=== PATIENT | male | born 1970 | race African-American/Black ===

== ENCOUNTER → 2016-09-06 | Outpatient (CLI) | payer OTHER ==
--- NOTE | 2016-09-06 15:44 | US ---
EXAMINATION TYPE: US kidneys/renal and bladder DATE OF EXAM: 09/06/2016 COMPARISON: NONE CLINICAL HISTORY: R31.9 Hematuria. EXAM MEASUREMENTS: Right Kidney: 12.4 x 5.5 x 5.9 cm Left Kidney: 12.6 x 6.1 x 5.8 cm Right Kidney: No hydronephrosis or masses seen Left Kidney: No hydronephrosis or masses seen Bladder: wnl Bilateral Jets seen: Yes There is no evidence for hydronephrosis at this point in time. No nephrolithiasis is seen. No parish s are identified. The urinary bladder is anechoic. Bilateral ureteral jets are seen. IMPRESSION: No significant abnormality to account for the patient's symptoms.
== END | disposition home or self-care (01) ==
LOC: RADUSWWP 15:02
PROVIDERS: ATTEND Internal Medicine
DX: R31.9 Hematuria, unspecified (principal)
CPT/HCPCS: 76770

== ENCOUNTER 2019-10-15 10:47 | Day surgery (SDC) | payer OTHER ==
[2019-10-11 09:28] VITALS: BMI 31.4
[2019-10-15 11:11] VITALS: TEMP 97.8
[2019-10-15] MEDS ORDERED: LACTATED RINGERS 1,000 ML IV ONE (11:11)
[2019-10-15] MEDS ORDERED: LIDOCAINE 1% (10MG/ML) FOR IV START INTRADERMA ONE (11:12)
[2019-10-15] MEDS ORDERED: MIDAZOLAM 2 MG/2 ML VIAL IVP ONE (11:52)
[2019-10-15] MEDS ORDERED: PROPOFOL 10 MG/ML 20 ML VIAL IV ONE (12:29)
--- NOTE | 2019-10-15 13:02 | P.PCN ---
Date of Procedure: 10/15/19 Description of Procedure: BRIEF HISTORY: Patient is a 49-year-old male presents for outpatient colonoscopy for screening for malignant neoplasm in the colon. No prior colonoscopy. No first-degree family members with colon cancer. No change in bowel habits reported. PROCEDURE PERFORMED: Colonoscopy with polypectomy. PREOPERATIVE DIAGNOSIS: Screening for malignant neoplasm of the colon, no prior colonoscopy. ESTIMATED BLOOD LOSS: Minimal. IV sedation per Anesthesia. PROCEDURE: After informed consent was obtained, the patient, was brought into the endoscopy unit. IV sedation was administered by Anesthesia under continuous monitoring. Digital rectal examination was normal. Initially the Olympus CF-190 flexible video colonoscope was then inserted in the rectum, gradually advanced into the cecum without any difficulty. Careful examination was performed as the scope was gradually being withdrawn. Ileocecal valve and the appendiceal orifice were visualized and appeared normal. Prep was excellent. Mucosa of the cecum, ascending colon, transverse colon, descending colon, sigmoid colon, and rectum appeared normal. 2 diminutive 1 mm sigmoid polyps removed. Forcep polypectomy. Retroflexion was performed in the rectum and no lesions were seen. The patient tolerated the procedure well. IMPRESSION: 2 diminutive sigmoid polyps removed with cold forceps. Otherwise, normal-appearing colon from rectum to cecum. RECOMMENDATIONS: Findings of this examination were discussed with the patient. Okay to resume diet and medications. Await pathology from polypectomy. Repeat colonoscopy would be in 7-10 years pending pathology from polypectomy.
[2019-10-15 13:33] VITALS: BP 126/74; PULSE 66; RESP 20
== END 2019-10-15 13:31 | disposition home or self-care (01) ==
LOC: ORWHC2ENDO 10:47
PROVIDERS: ATTEND Internal Medicine
DX: Z12.11 Encounter for screening for malignant neoplasm of colon (principal); K63.5 Polyp of colon; I10 Essential (primary) hypertension; Z91.040 Latex allergy status; Z79.899 Other long term (current) drug therapy; Z98.890 Other specified postprocedural states
CPT/HCPCS: 88305; 45380; J2250; J2704

== ENCOUNTER 2019-12-30 05:59 | Emergency (ER) | payer OTHER ==
[2019-12-30 06:06] VITALS: RESP 16; TEMP 98.2
[2019-12-30] MEDS ORDERED: PANTOPRAZOLE 40 MG/10 ML VIAL IVP STA (06:17)
[2019-12-30] MEDS ORDERED: SODIUM CHLORIDE 0.9% 1,000 ML IV STA (06:17)
[2019-12-30] MEDS ORDERED: MAG HYDROX/AL HYDROX/SIMETH 30 ML CUP PO STA (06:18)
--- NOTE | 2019-12-30 06:38 | ED ---
Abdominal Pain HPI - General Chief Complaint: Abdominal Pain Stated Complaint: abd pain Time Seen by Provider: 12/30/19 06:01 Source: patient, RN notes reviewed Mode of arrival: ambulatory Limitations: no limitations - History of Present Illness Initial Comments: 49-year-old male presents emergency Department chief complaint of abdominal pain, gas issues. Patient states that he started having stomach issues after he ate some red lobster he states there is a large amount of water. Patient states that he has some left upper quadrant discomfort. Patient states when he passes gas does feel better denies any constipation, diarrhea, melena or hematochezia. Denies any fevers or chills no nausea vomiting. Patient states that he does not taking to help symptoms he states that he had prior hernia surgery when he was 4 years old has had no other surgeries. - Related Data Home Medications Medication Instructions Recorded Confirmed Hydrochlorothiazide 12.5 mg PO DAILY 10/11/19 10/11/19 [hydroCHLOROthiazide] Previous Rx's Medication Instructions Recorded Mag Hydrox/Al Hydrox/Simeth 20 ml PO Q6HR #200 ml 12/30/19 [Maalox] Omeprazole [PriLOSEC] 20 mg PO DAILY #14 cap 12/30/19 Allergies Allergy/AdvReac Type Severity Reaction Status Date / Time No Known Allergies Allergy Verified 12/30/19 06:06 Review of Systems ROS Statement: Those systems with pertinent positive or pertinent negative responses have been documented in the HPI. ROS Other: All systems not noted in ROS Statement are negative. Past Medical History Past Medical History: Hyperlipidemia, Hypertension History of Any Multi-Drug Resistant Organisms: None Reported Past Surgical History: Hernia Repair, Orthopedic Surgery Additional Past Surgical History / Comment(s): RT KNEE SX X 2 Past Anesthesia/Blood Transfusion Reactions: No Reported Reaction Past Psychological History: No Psychological Hx Reported Smoking Status: Former smoker Past Alcohol Use History: None Reported Past Drug Use History: None Reported - Past Family History Mother Family Medical History: No Reported History General Exam Limitations: no limitations General appearance: alert, in no apparent distress Head exam: Present: atraumatic, normocephalic, normal inspection Eye exam: Present: normal appearance, PERRL, EOMI. Absent: scleral icterus, conjunctival injection, periorbital swelling ENT exam: Present: normal exam, normal oropharynx, mucous membranes moist Neck exam: Present: normal inspection, full ROM. Absent: tenderness, meningismus, lymphadenopathy Respiratory exam: Present: normal lung sounds bilaterally. Absent: respiratory distress, wheezes, rales, rhonchi, stridor Cardiovascular Exam: Present: regular rate, normal rhythm, normal heart sounds. Absent: systolic murmur, diastolic murmur, rubs, gallop, clicks GI/Abdominal exam: Present: soft, tenderness (Left upper quadrant mild), normal bowel sounds. Absent: distended, guarding, rebound, rigid Back exam: Absent: CVA tenderness (R), CVA tenderness (L) Neurological exam: Present: alert, oriented X3 Skin exam: Present: warm, dry, intact, normal color. Absent: rash Course Vital Signs 12/30/19 12/30/19 06:01 06:40 Temperature 98.2 F Pulse Rate 76 Respiratory 16 Rate Blood Pressure 132/75 O2 Sat by Pulse 99 Oximetry Medical Decision Making - Medical Decision Making Patient of her abdominal discomfort. Labs unremarkable. Patient's complete relief symptoms after Maalox. I do believe this is related to gastritis as his left upper quadrant abdominal pain. Patient we discharged in stable condition we discharged on omeprazole and may take Maalox when necessary as directed. - Lab Data Result diagrams: 12/30/19 06:38 12/30/19 06:38 Lab Results 12/30/19 12/30/19 12/30/19 Range/Units 06:38 06:38 06:38 WBC 8.8 (3.8-10.6) k/uL RBC 4.21 L (4.30-5.90) m/uL Hgb 14.1 (13.0-17.5) gm/dL Hct 42.5 (39.0-53.0) % MCV 100.9 H (80.0-100.0) fL MCH 33.6 (25.0-35.0) pg MCHC 33.3 (31.0-37.0) g/dL RDW 12.7 (11.5-15.5) % Plt Count 183 (150-450) k/uL Neutrophils % 59 % Lymphocytes % 31 % Monocytes % 5 % Eosinophils % 3 % Basophils % 1 % Neutrophils # 5.2 (1.3-7.7) k/uL Lymphocytes # 2.8 (1.0-4.8) k/uL Monocytes # 0.4 (0-1.0) k/uL Eosinophils # 0.3 (0-0.7) k/uL Basophils # 0.1 (0-0.2) k/uL Sodium 139 (137-145) mmol/L Potassium 4.0 (3.5-5.1) mmol/L Chloride 106 (98-107) mmol/L Carbon Dioxide 28 (22-30) mmol/L Anion Gap 5 mmol/L BUN 16 (9-20) mg/dL Creatinine 0.94 (0.66-1.25) mg/dL Est GFR (CKD-EPI)AfAm >90 (>60 ml/min/1.73 sqM) Est GFR (CKD-EPI)NonAf >90 (>60 ml/min/1.73 sqM) Glucose 106 H (74-99) mg/dL Calcium 9.6 (8.4-10.2) mg/dL Total Bilirubin 0.4 (0.2-1.3) mg/dL AST 26 (17-59) U/L ALT 16 (4-49) U/L Alkaline Phosphatase 63 (38-126) U/L Total Protein 7.3 (6.3-8.2) g/dL Albumin 3.8 (3.5-5.0) g/dL Lipase 178 (23-300) U/L Urine Color Yellow Urine Appearance Clear (Clear) Urine pH 6.5 (5.0-8.0) Ur Specific Atkins 1.025 (1.001-1.035) Urine Protein Negative (Negative) Urine Glucose (UA) Negative (Negative) Urine Ketones Negative (Negative) Urine Blood Trace H (Negative) Urine Nitrite Negative (Negative) Urine Bilirubin Negative (Negative) Urine Urobilinogen <2.0 (<2.0) mg/dL Ur Leukocyte Esterase Negative (Negative) Urine RBC 4 (0-5) /hpf Urine WBC 1 (0-5) /hpf Urine Mucus Rare H (None) /hpf Disposition Clinical Impression: Gastritis Disposition: HOME SELF-CARE Condition: Stable Instructions (If sedation given, give patient instructions): Gastritis (ED) Additional Instructions: Please return to the Emergency Department if symptoms worsen or any other concerns. Prescriptions: Mag Hydrox/Al Hydrox/Simeth [Maalox] 20 ml PO Q6HR #200 ml Omeprazole [PriLOSEC] 20 mg PO DAILY #14 cap Is patient prescribed a controlled substance at d/c from ED?: No Referrals: Sy Yap MD [Primary Care Provider] - 1-2 days Time of Disposition: 07:27
[2019-12-30 06:53] LABS: Basophils # (A) 0.1 k/uL (0-0.2); Basophils % (A) 1 %; Eosinophils # (A) 0.3 k/uL (0-0.7); Eosinophils % (A) 3 %; HCT 42.5 % (39.0-53.0); HGB 14.1 gm/dL (13.0-17.5); Lymphocytes # (A) 2.8 k/uL (1.0-4.8); Lymphocytes % (A) 31 %; MCH 33.6 pg (25.0-35.0); MCHC 33.3 g/dL (31.0-37.0); MCV 100.9 fL (80.0-100.0); Mean Platelet Volume 8.5; Monocytes # (A) 0.4 k/uL (0-1.0); Monocytes % (A) 5 %; Neutrophils # (A) 5.2 k/uL (1.3-7.7); Neutrophils % (A) 59 %; Platelet Count 183 k/uL (150-450); RBC 4.21 m/uL (4.30-5.90); RDW 12.7 % (11.5-15.5); WBC 8.8 k/uL (3.8-10.6)
[2019-12-30 06:59] LABS: ALT 16 U/L (4-49); AST 26 U/L (17-59); African American GFR (CKD) >90 (>60 ml/min/1.73 sqM); Albumin 3.8 g/dL (3.5-5.0); Alkaline Phosphatase 63 U/L (38-126); Anion Gap 5 mmol/L; Blood Urea Nitrogen 16 mg/dL (9-20); Calcium 9.6 mg/dL (8.4-10.2); Carbon Dioxide 28 mmol/L (22-30); Chloride 106 mmol/L (98-107); Glucose 106 mg/dL (74-99); Lipase 178 U/L (23-300); Non-African American GFR(CKD) >90 (>60 ml/min/1.73 sqM); Sodium 139 mmol/L (137-145); Total Bilirubin 0.4 mg/dL (0.2-1.3); Total Protein 7.3 g/dL (6.3-8.2)
[2019-12-30 07:11] LABS: Appearance,Urine Clear (Clear); Bilirubin,Urine Negative (Negative); Blood,Urine Trace (Negative); Color,Urine Yellow; Glucose,Urine (UA) Negative (Negative); Ketones,Urine Negative (Negative); Leukocyte Esterase,Urine Negative (Negative); Mucus,Urine Rare /hpf; Nitrite,Urine Negative (Negative); PH, Urine 6.5 (5.0-8.0); Protein,Urine Negative (Negative); RBC,Urine 4 /hpf (0-5); Specific Gravity,Urine 1.025 (1.001-1.035); Urobilinogen,Urine <2.0 mg/dL (<2.0); WBC,Urine 1 /hpf (0-5)
[2019-12-30 08:27] VITALS: BP 138/72; PULSE 77
== END 2019-12-30 08:27 | disposition home or self-care (01) ==
LOC: EC 05:59
DX: K29.70 Gastritis, unspecified, without bleeding (principal); I10 Essential (primary) hypertension; Z87.891 Personal history of nicotine dependence; Z79.899 Other long term (current) drug therapy; Z98.890 Other specified postprocedural states
CPT/HCPCS: 36415; 80053; 83690; 85025; 81001; 99284; 96374; 96361; C9113

== ENCOUNTER 2020-05-20 01:34 | Emergency (ER) | payer OTHER ==
[2020-05-20 01:45] VITALS: RESP 18; TEMP 97.7
[2020-05-20] MEDS ORDERED: SODIUM CHLORIDE 0.9% 1,000 ML IV STA (02:41)
--- NOTE | 2020-05-20 03:12 | ED ---
General Adult HPI <Clay Modi - Last Filed: 05/20/20 05:23> - General Source: patient Mode of arrival: ambulatory Limitations: no limitations <Arash Warren - Last Filed: 05/20/20 23:45> - General Chief complaint: Fall Stated complaint: IHS, light headed slip and fall Time Seen by Provider: 05/20/20 02:19 - History of Present Illness Initial comments: 50-year-old male with a past medical history of hypertension, hyperlipidemia presents to the emergency room for a chief complaint of syncope. Patient states he was at work. 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 States that himself and his coworkers stop to take a short break. States he started to feel lightheaded and had a syncopal episode. Patient states his friends woke him up. Patient states he is not sure how he fell but may have hit his head. He states he is having lower back pain now. He denies upper back pain. Patient denies chest pain or shortness of breath.Patient has no other complaints at this time including shortness of breath, chest pain, abdominal pain, nausea or vomiting, headache, or visual changes. (Arash Warren) - Related Data Home Medications Medication Instructions Recorded Confirmed Hydrochlorothiazide 12.5 mg PO DAILY 10/11/19 10/11/19 [hydroCHLOROthiazide] Previous Rx's Medication Instructions Recorded Mag Hydrox/Al Hydrox/Simeth 20 ml PO Q6HR #200 ml 12/30/19 [Maalox] Omeprazole [PriLOSEC] 20 mg PO DAILY #14 cap 12/30/19 Allergies Allergy/AdvReac Type Severity Reaction Status Date / Time No Known Allergies Allergy Verified 05/20/20 01:45 Review of Systems ROS Other: All systems not noted in ROS Statement are negative. <Clay Modi - Last Filed: 05/20/20 05:23> ROS Other: All systems not noted in ROS Statement are negative. <Arash Warren - Last Filed: 05/20/20 23:45> ROS Statement: Those systems with pertinent positive or pertinent negative responses have been documented in the HPI. Past Medical History Past Medical History: Hyperlipidemia, Hypertension History of Any Multi-Drug Resistant Organisms: None Reported Past Surgical History: Hernia Repair, Orthopedic Surgery Additional Past Surgical History / Comment(s): RT KNEE SX X 2 Past Anesthesia/Blood Transfusion Reactions: No Reported Reaction Past Psychological History: No Psychological Hx Reported Smoking Status: Former smoker Past Alcohol Use History: None Reported Past Drug Use History: None Reported - Past Family History Mother Family Medical History: No Reported History <Arash Warren - Last Filed: 05/20/20 23:45> General Exam Limitations: no limitations General appearance: alert, in no apparent distress Head exam: Present: atraumatic, normocephalic, normal inspection Eye exam: Present: normal appearance, PERRL, EOMI. Absent: scleral icterus, conjunctival injection, periorbital swelling ENT exam: Present: normal exam, mucous membranes moist Neck exam: Present: normal inspection, full ROM. Absent: tenderness, meningismus, lymphadenopathy Respiratory exam: Present: normal lung sounds bilaterally. Absent: respiratory distress, wheezes, rales, rhonchi, stridor Cardiovascular Exam: Present: regular rate, normal rhythm, normal heart sounds. Absent: systolic murmur, diastolic murmur, rubs, gallop, clicks GI/Abdominal exam: Present: soft, normal bowel sounds. Absent: distended, tenderness, guarding, rebound, rigid Neurological exam: Present: alert <Arash Warren P - Last Filed: 05/20/20 23:45> Course Vital Signs 05/20/20 05/20/20 01:39 05:53 Temperature 97.7 F Pulse Rate 69 96 Respiratory 18 18 Rate Blood Pressure 142/83 108/78 O2 Sat by Pulse 98 97 Oximetry Medical Decision Making - Lab Data Result diagrams: 05/20/20 02:58 05/20/20 02:58 <Clay Modi - Last Filed: 05/20/20 05:23> - Lab Data Result diagrams: 05/20/20 02:58 05/20/20 02:58 <Arash Warren - Last Filed: 05/20/20 23:45> - Medical Decision Making Vitals are stable. EKG is nonischemic. CT brain shows no acute hemorrhage, hydrocephalus, or mass effect. CT cervical spine shows no acute fracture or subluxation x-ray shows no acute cardiopulmonary process. Lumbar spine x-ray shows no acute fracture. CBC CMP troponin. Care signed out to Dr. Modi Pending d-dimer, otherwise stable for dc home. (Arash Warren) - Lab Data Lab Results 05/20/20 05/20/20 05/20/20 Range/Units 02:58 02:58 02:58 WBC 4.8 (3.8-10.6) k/uL RBC 4.41 (4.30-5.90) m/uL Hgb 14.3 (13.0-17.5) gm/dL Hct 42.2 (39.0-53.0) % MCV 95.7 (80.0-100.0) fL MCH 32.5 (25.0-35.0) pg MCHC 34.0 (31.0-37.0) g/dL RDW 12.2 (11.5-15.5) % Plt Count 171 (150-450) k/uL MPV 8.2 Neutrophils % 60 % Lymphocytes % 29 % Monocytes % 8 % Eosinophils % 2 % Basophils % 1 % Neutrophils # 2.9 (1.3-7.7) k/uL Lymphocytes # 1.4 (1.0-4.8) k/uL Monocytes # 0.4 (0-1.0) k/uL Eosinophils # 0.1 (0-0.7) k/uL Basophils # 0.0 (0-0.2) k/uL PT 10.3 (9.0-12.0) sec INR 1.0 (<1.2) APTT 24.6 (22.0-30.0) sec D-Dimer (<0.60) mg/L FEU Sodium 138 (137-145) mmol/L Potassium 3.6 (3.5-5.1) mmol/L Chloride 100 (98-107) mmol/L Carbon Dioxide 30 (22-30) mmol/L Anion Gap 8 mmol/L BUN 15 (9-20) mg/dL Creatinine 1.10 (0.66-1.25) mg/dL Est GFR (CKD-EPI)AfAm 90 (>60 ml/min/1.73 sqM) Est GFR (CKD-EPI)NonAf 77 (>60 ml/min/1.73 sqM) Glucose 76 (74-99) mg/dL Calcium 9.4 (8.4-10.2) mg/dL Magnesium 1.9 (1.6-2.3) mg/dL Total Bilirubin 0.3 (0.2-1.3) mg/dL AST 25 (17-59) U/L ALT 18 (4-49) U/L Alkaline Phosphatase 76 (38-126) U/L Troponin I (0.000-0.034) ng/mL Total Protein 7.6 (6.3-8.2) g/dL Albumin 3.9 (3.5-5.0) g/dL 05/20/20 05/20/20 Range/Units 02:58 02:58 WBC (3.8-10.6) k/uL RBC (4.30-5.90) m/uL Hgb (13.0-17.5) gm/dL Hct (39.0-53.0) % MCV (80.0-100.0) fL MCH (25.0-35.0) pg MCHC (31.0-37.0) g/dL RDW (11.5-15.5) % Plt Count (150-450) k/uL MPV Neutrophils % % Lymphocytes % % Monocytes % % Eosinophils % % Basophils % % Neutrophils # (1.3-7.7) k/uL Lymphocytes # (1.0-4.8) k/uL Monocytes # (0-1.0) k/uL Eosinophils # (0-0.7) k/uL Basophils # (0-0.2) k/uL PT (9.0-12.0) sec INR (<1.2) APTT (22.0-30.0) sec D-Dimer 0.23 (<0.60) mg/L FEU Sodium (137-145) mmol/L Potassium (3.5-5.1) mmol/L Chloride (98-107) mmol/L Carbon Dioxide (22-30) mmol/L Anion Gap mmol/L BUN (9-20) mg/dL Creatinine (0.66-1.25) mg/dL Est GFR (CKD-EPI)AfAm (>60 ml/min/1.73 sqM) Est GFR (CKD-EPI)NonAf (>60 ml/min/1.73 sqM) Glucose (74-99) mg/dL Calcium (8.4-10.2) mg/dL Magnesium (1.6-2.3) mg/dL Total Bilirubin (0.2-1.3) mg/dL AST (17-59) U/L ALT (4-49) U/L Alkaline Phosphatase (38-126) U/L Troponin I <0.012 (0.000-0.034) ng/mL Total Protein (6.3-8.2) g/dL Albumin (3.5-5.0) g/dL Disposition Is patient prescribed a controlled substance at d/c from ED?: No <Clay Modi - Last Filed: 05/20/20 05:23> Is patient prescribed a controlled substance at d/c from ED?: No Time of Disposition: 04:06 <Arash Warren - Last Filed: 05/20/20 23:45> Clinical Impression: Syncope Disposition: HOME SELF-CARE Condition: Fair Instructions (If sedation given, give patient instructions): Syncope (ED) Additional Instructions: Please follow up with primary care in 1-2 days. Return to the emergency room if you have any worsening symptoms. Referrals: Sy Yap MD [Primary Care Provider] - 1-2 days
[2020-05-20 03:29] LABS: Basophils % (A) 1 %; Eosinophils # (A) 0.1 k/uL (0-0.7); Eosinophils % (A) 2 %; HCT 42.2 % (39.0-53.0); HGB 14.3 gm/dL (13.0-17.5); Lymphocytes # (A) 1.4 k/uL (1.0-4.8); Lymphocytes % (A) 29 %; MCH 32.5 pg (25.0-35.0); MCV 95.7 fL (80.0-100.0); Mean Platelet Volume 8.2; Monocytes # (A) 0.4 k/uL (0-1.0); Monocytes % (A) 8 %; Neutrophils # (A) 2.9 k/uL (1.3-7.7); Neutrophils % (A) 60 %; Platelet Count 171 k/uL (150-450); RBC 4.41 m/uL (4.30-5.90); RDW 12.2 % (11.5-15.5); WBC 4.8 k/uL (3.8-10.6)
--- NOTE | 2020-05-20 03:46 | XR ---
EXAM: XR Lumbosacral Spine, 2 or 3 Views CLINICAL HISTORY: ITS.REASON XR Reason: pain TECHNIQUE: Frontal and lateral views of the lumbar spine and sacrum. COMPARISON: No relevant prior studies available. Impression: Vertebrae: No acute fracture. Minimal retrolisthesis of L1 on L2. Chronic appearing minimal superior endplate wedging of T11 and T12. Disc spaces: Moderate L1-L2, mild L3-4, and moderate L4-S1 disc height loss. Soft tissues: Calcified aorta.
--- NOTE | 2020-05-20 03:47 | XR ---
EXAM: XR Chest, 2 Views CLINICAL HISTORY: ITS.REASON XR Reason: syncope TECHNIQUE: Frontal and lateral views of the chest. COMPARISON: No relevant prior studies available. FINDINGS: Lungs: No consolidation or mass. Pleural space: No effusion. Heart: No cardiomegaly. Bones/joints: No acute findings. Mild degenerative disease. IMPRESSION: No acute cardiopulmonary process.
[2020-05-20 03:50] LABS: Partial Thromboplastin Time 24.6 sec (22.0-30.0); Prothrombin Time 10.3 sec (9.0-12.0)
--- NOTE | 2020-05-20 03:51 | CT ---
EXAM: CT Head Without Intravenous Contrast CLINICAL HISTORY: ITS.REASON CT Reason: syncope TECHNIQUE: Axial computed tomography images of the head/brain without intravenous contrast. CTDI is 30.35 mGy and DLP is 774.35 mGy-cm. This CT exam was performed using one or more of the following dose reduction techniques: automated exposure control, adjustment of the mA and/or kV according to patient size, and/or use of iterative reconstruction technique. COMPARISON: No relevant prior studies available. FINDINGS: Brain: No hemorrhage or mass effect. Partially empty sella. Ventricles: No hydrocephalus. Bones/joints: Unremarkable. Soft tissues: Unremarkable. Sinuses: Trace ethmoid and maxillary sinus mucosal thickening. Mastoid air cells: Clear. IMPRESSION: No acute hemorrhage, hydrocephalus, or mass effect. EXAM: CT Cervical Spine Without Intravenous Contrast CLINICAL HISTORY: ITS.REASON CT Reason: syncope TECHNIQUE: Axial computed tomography images of the cervical spine without intravenous contrast. CTDI is 30.35 mGy and DLP is 774.35 mGy-cm. This CT exam was performed using one or more of the following dose reduction techniques: automated exposure control, adjustment of the mA and/or kV according to patient size, and/or use of iterative reconstruction technique. COMPARISON: No relevant prior studies available. FINDINGS: Vertebrae: No acute fracture. Discs/spinal canal/neural foramina: Mild degenerative changes. Mild spinal canal stenosis at C6-7. Soft tissues: No prevertebral swelling. IMPRESSION: No acute fracture or subluxation.
[2020-05-20 04:07] LABS: Albumin 3.9 g/dL (3.5-5.0); Calcium 9.4 mg/dL (8.4-10.2); Magnesium 1.9 mg/dL (1.6-2.3); Potassium 3.6 mmol/L (3.5-5.1); Total Bilirubin 0.3 mg/dL (0.2-1.3); Total Protein 7.6 g/dL (6.3-8.2)
[2020-05-20 05:54] VITALS: BP 108/78; PULSE 96
== END 2020-05-20 05:54 | disposition home or self-care (01) ==
LOC: EC 01:34
DX: R55 Syncope and collapse (principal); R42 Dizziness and giddiness; M54.5 Low back pain; I10 Essential (primary) hypertension; Z79.899 Other long term (current) drug therapy; Z87.891 Personal history of nicotine dependence
CPT/HCPCS: 36415; 70450; 71046; 72100; 72125; 80053; 83735; 84484; 85025; 85379; 85610; 85730; 93005; 99284

== ENCOUNTER 2020-07-08 18:38 | Emergency (ER) | payer OTHER ==
[2020-07-08 18:42] VITALS: BP 119/80; PULSE 78; RESP 18; TEMP 98
--- NOTE | 2020-07-08 19:54 | XR ---
Result: History: Pain. Comparison: None available. Technique: 3 views of the right knee. Findings: No acute fracture or dislocation is seen. The visualized osseous structures are in anatomic alignmen t. The joint spaces are preserved. There is no significant knee joint effusion. Prior ACL reconstru ction seen. Impression: No acute osseous abnormality.
--- NOTE | 2020-07-08 20:30 | ED ---
Extremity Problem HPI - General Chief complaint: Extremity Problem,Nontraumatic Stated complaint: rt knee pain Time Seen by Provider: 07/08/20 19:02 Source: patient Mode of arrival: ambulatory Limitations: no limitations - History of Present Illness Initial comments: 50 year-old male patient presents to the emergency department for evaluation of right knee pain. Patient states that he had ACL repair to the knee several years ago at the [facility] [place]. States that he woke up early this morning with knee pain. States it hurts to straighten it out, hurts to walk, and hurts to bend it all the way. Denies any swelling or redness. Denies any fever or chills. Denies any known injury or strain. No new activities. Has not taken any pain medication and does not want any. Denies any other injuries or concerns. Denies any hip, groin, or foot pain. Denies any back pain. Has been using a crutch to ambulate. - Related Data Home Medications Medication Instructions Recorded Confirmed Hydrochlorothiazide 12.5 mg PO DAILY 10/11/19 07/08/20 [hydroCHLOROthiazide] Allergies Allergy/AdvReac Type Severity Reaction Status Date / Time No Known Allergies Allergy Verified 07/08/20 19:10 Review of Systems ROS Statement: Those systems with pertinent positive or pertinent negative responses have been documented in the HPI. ROS Other: All systems not noted in ROS Statement are negative. Past Medical History Past Medical History: Hyperlipidemia, Hypertension History of Any Multi-Drug Resistant Organisms: None Reported Past Surgical History: Hernia Repair, Orthopedic Surgery Additional Past Surgical History / Comment(s): RT KNEE SX X 2 Past Anesthesia/Blood Transfusion Reactions: No Reported Reaction Past Psychological History: No Psychological Hx Reported Smoking Status: Former smoker Past Alcohol Use History: None Reported Past Drug Use History: None Reported - Past Family History Mother Family Medical History: No Reported History General Exam Limitations: no limitations General appearance: alert, in no apparent distress, other (This is a well developed, well nourished adult male patient in no acute distress. V/S upon presentation are temp 98.0, pulse 78, resp 18, BP 119/80, Pulse ox 99% room air.) Respiratory exam: Present: normal lung sounds bilaterally. Absent: respiratory distress, wheezes, rales, rhonchi, stridor Cardiovascular Exam: Present: regular rate, normal rhythm, normal heart sounds. Absent: systolic murmur, diastolic murmur, rubs, gallop, clicks Extremities exam: Present: normal inspection, full ROM, normal capillary refill, other (No swelling, no bony tenderness to the right knee. Skin is warm and dry. No erythema. Pedal pulses 2+.). Absent: tenderness, pedal edema, joint swelling, calf tenderness Neurological exam: Present: alert, oriented X3, CN II-XII intact Psychiatric exam: Present: normal affect, normal mood Skin exam: Present: warm, dry, intact, normal color. Absent: rash Course Vital Signs 07/08/20 18:39 Temperature 98.0 F Pulse Rate 78 Respiratory 18 Rate Blood Pressure 119/80 O2 Sat by Pulse 99 Oximetry Medical Decision Making - Medical Decision Making 50 year-old male patient presents to the emergency department for evaluation of right knee pain. No injury. Physical exam shows no swelling, no erythema. Full range of motion intact. No fever. Xray negative. Discussed results with the patient. Due to previous surgery there is concern for ACL injury. He will be discharged to follow up with the hvac specialist as soon as possible. Follow up with primary care physician for recheck in 1-2 days. Return parameters discussed in detail. He verbalizes understanding and agrees with this plan. Case discussed with Dr. Cavanaugh. - Radiology Data Radiology results: report reviewed, image reviewed 3 views of the right knee. Report was reviewed in its entirety. Impression by Dr. Yanez shows no acute osseous abnormality. Disposition Clinical Impression: Right knee pain Disposition: HOME SELF-CARE Condition: Good Instructions (If sedation given, give patient instructions): Knee Pain (ED) Additional Instructions: Rest, ice, elevate the knee. Take Tylenol Motrin for pain control. Follow-up with orthopedics for further evaluation as soon as possible. Return to the emergency department for any new, worsening, or concerning symptoms. Is patient prescribed a controlled substance at d/c from ED?: No Referrals: Sy Yap MD [Primary Care Provider] - 1-2 days Time of Disposition: 20:29
== END 2020-07-08 21:10 | disposition home or self-care (01) ==
LOC: EC 18:38
DX: M25.561 Pain in right knee (principal); E78.5 Hyperlipidemia, unspecified; I10 Essential (primary) hypertension; Z87.891 Personal history of nicotine dependence; Z79.899 Other long term (current) drug therapy
CPT/HCPCS: 99283

== ENCOUNTER → 2021-05-04 | Outpatient (CLI) | payer OTHER ==
--- NOTE | 2021-05-04 12:14 | XR ---
EXAMINATION TYPE: XR tibia fibula RT DATE OF EXAM: 05/04/2021 CLINICAL HISTORY: pain TECHNIQUE: AP and lateral images of the right tibia and fibula are obtained. COMPARISON: None. FINDINGS: There is no acute fracture/dislocation evident. Postoperative changes of ACL reconstructio n. The joint spaces appear within normal limits. The overlying soft tissue appears unremarkable. IMPRESSION: There is no acute fracture or dislocation seen. ICD 10 NO FRACTURE, INITIAL EVALUATION
== END | disposition home or self-care (01) ==
LOC: RADXRMAIN 11:29
PROVIDERS: ATTEND Internal Medicine
DX: M79.661 Pain in right lower leg (principal)